=== PATIENT | male | born 1945 | race Caucasian/White ===

== ENCOUNTER 2019-05-04 09:20 | Day surgery (SDC) | payer MEDICARE, OTHER, MEDICAID ==
[2019-05-04 10:31] LABS: INR 1.01; PROTIME 13.4 Sec (11.9-14.9)
[2019-05-04] MEDS ORDERED: VERAPAMIL 5 MG INJ (10:52)
[2019-05-04] MEDS ORDERED: MIDAZOLAM 1 MG/ML 2 ML INJ (10:52)
[2019-05-04] MEDS ORDERED: FENTAnyl 50 MCG/ML VIAL (10:52)
[2019-05-04] MEDS ORDERED: HEPARIN 1000 UNITS/ML 10 ML INJ (10:52)
[2019-05-04] MEDS ORDERED: LIDOCAINE 1% (MDV) 20 ML INJ (10:52)
[2019-05-04] MEDS ORDERED: IODIXANOL LOCM 100 ML BTL (10:52)
[2019-05-04] MEDS ORDERED: NITROGLYCERIN (IC) 100 MCG/ML INJ (10:52)
[2019-05-04] MEDS ORDERED: SOD CHLORIDE 0.9% 1,000 ML IV (11:00)
[2019-05-04] MEDS ORDERED: ONDANSETRON 4 MG INJ IV (12:00)
[2019-05-04] MEDS ORDERED: morphine 2 MG INJ IV (12:00)
[2019-05-04] MEDS ORDERED: ACETAMINOPHEN 325 MG TAB PO (12:00)
[2019-05-04] MEDS ORDERED: AL HYDROX/MG HYDROX/SIMETH 30 ML CUP PO (12:00)
[2019-05-04] MEDS: SOD CHLORIDE 0.9% 1,000 ML IV (13:05)
== END 2019-05-04 18:03 | disposition home or self-care (01) ==
LOC: CCL 09:20
DX: I25.10 Atherosclerotic heart disease of native coronary artery without angina pectoris (principal); I10 Essential (primary) hypertension; E11.9 Type 2 diabetes mellitus without complications; E78.5 Hyperlipidemia, unspecified
CPT/HCPCS: 71045; 82962; 85610; 85730; 93005; 93458